=== PATIENT | male | born 1960 | race Caucasian/White ===

== ENCOUNTER 2024-04-17 11:24 | Emergency (ER) | payer OTHER, SELFPAY ==
--- NOTE | ~2024-04-17 | XR_ITS ---
EXAMINATION: XR CHEST CLINICAL INFORMATION: facial droop COMPARISON: None available. TECHNIQUE: Frontal view of the chest was obtained. FINDINGS: The heart is normal in size. The lungs are clear. No pleural effusion. No pneumothorax. No acute osseous abnormality. XR/XR chest 1V IMPRESSION: No acute cardiopulmonary disease. Electronically signed by: Parag Lema DO 04/17/2024 03:39 PM [facility]
--- NOTE | ~2024-04-17 | CT_ITS ---
EXAMINATION: CT HEAD WITHOUT CONTRAST CLINICAL INFORMATION: Left-sided facial droop COMPARISON: None available. TECHNIQUE: Contiguous axial imaging was performed from the skull base to vertex without intravenous administration of contrast. This CT examination was performed using dose optimization techniques as appropriate, variously including the following: *Automated exposure control *Adjustment of mA and/or kV according to patient size (this includes techniques or standardized protocols for targeted exams where dose is matched to indication/reason for exam; i.e. extremities or head) *Use of iterative reconstruction technique DLP: 753 mGy-cm RESULTS: There is no evidence of acute intracranial hemorrhage, acute large vessel infarct, midline shift or mass effect. The lobo-white differentiation is preserved. The ventricles and sulci are within normal limits in size and configuration. There is no evidence of hydrocephalus. There are no extraaxial collections. Osseous structures are intact. Paranasal sinuses and mastoid air cells are well aerated. CT/CT head/brain wo IV con IMPRESSION: Unremarkable non-contrast CT of the brain. Electronically signed by: Alva Flores MD 04/17/2024 11:55 AM EST
--- NOTE | ~2024-04-17 | MR_ITS ---
EXAMINATION: MR BRAIN WITHOUT CONTRAST CLINICAL INFORMATION: Left facial droop. COMPARISON: CT head dated April 17, 2024. TECHNIQUE: MRI of the brain was obtained using routine sequences without contrast. FINDINGS: There is no area of abnormal restricted diffusion to indicate an acute/subacute cerebral or cerebellar infarction. There is no acute intracranial hemorrhage. There is a small focus of decreased signal on the susceptibility weighted sequence within the subcortical white matter of the right frontal lobe representing either an area of calcification or prior microhemorrhage. There is no midline shift or mass effect. There is no extra-axial fluid collection. The ventricles are normal in size. Flow voids at the base of the brain are intact. Midline structures are normal in appearance. The cerebellar tonsils are normally positioned. The orbits are symmetric and within normal limits. There is scattered ethmoid air cell mucosal thickening. There are bilateral mastoid air cell effusions, right larger than left. MR/MR head/brain wo con IMPRESSION: There is no area of abnormal restricted diffusion to indicate an acute/subacute cerebral or cerebellar infarction. There is no intracranial mass lesion. No acute intracranial hemorrhage. Electronically signed by: Parag Lema DO 04/17/2024 02:15 PM EST
--- NOTE | 2024-04-17 11:28 | ECG_ITS ---
Test Reason : FACIAL DROOP Blood Pressure : / mmHG Vent. Rate : 076 BPM Atrial Rate : 071 BPM P-R Int : 000 ms QRS Dur : 088 ms QT Int : 382 ms P-R-T Axes : 000 000 033 degrees QTc Int : 429 ms Normal sinus rhythm with Premature atrial complexes Nonspecific T wave abnormality Abnormal ECG No previous ECGs available Referred By: Fiordaliza Dasilva Electronically Signed By:ARPIT WILLOUGHBY MD
--- NOTE | 2024-04-17 11:28 | ED.NEUROSD ---
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 Engel HPI Narrative: 63-year-old Lebanese speaking male presented today for evaluation of left facial droop and left facial numbness started since yesterday morning roughly over 24 hours, no ear pain, no other weakness, no numbness, no speech problems , no headache, no nausea, vomiting. History of left knee total replacement at [facility] 2 months ago. Related Data Previous Rx's ?Medication ?Instructions ?Recorded carboxymethylcellulose sodium 1 % 1 drp ophthalmic (eye) QID #15 mL 04/17/24 eye drops (Artificial Tears (carboxymethylcellulose)) prednisone 20 mg tablet 20 mg PO BID #10 tabs 04/17/24 valacyclovir 1 gram tablet 1,000 mg PO DAILY #7 tabs 04/17/24 (Valtrex) Allergies Allergy/AdvReac Type Severity Reaction Status Date / Time No Known Allergies Allergy Verified 04/17/24 11:32 Review of Systems Review of Systems: All other systems are reviewed and are negative Constitutional: Reports as per HPI and Reports no additional constitutional complaints Eyes: Reports as per HPI and Reports no additional eye complaints Reports system reviewed and no additional complaints, except as documented Cardiovascular: Reports as per HPI and Reports no additional cardiovascular complaints Respiratory: Reports as per HPI and Reports no additional respiratory complaints Gastrointestinal: Reports as per HPI and Reports no additional gastrointestinal complaints Genitourinary: Reports no additional female genitourinary complaints Musculoskeletal: Reports no additional musculoskeletal complaints Skin/Breast: Reports system reviewed and no additional complaints, except as docu Psychiatric: Reports no additional psychiatric complaints Endocrine: Reports no additional endocrine complaints Hematologic/Lymphatic: Reports no additional hematologic/lymphatic complaints Allergic/Immunologic: Reports no additional allergic/immunologic complaints Reports system reviewed and no additional complaints, except as documented and Reports Abnormal speech present [facility] Social History Social History Advance Directives: No Advance Directives Information Provided: No Do you have a plan to hurt others: No Plan Physical Exam Vital Signs: Vital Signs: Last Vital Signs Temp 98.5 F 04/17/24 13:11 Pulse 75 04/17/24 13:11 Resp 18 04/17/24 13:11 BP 153/84 H 04/17/24 13:11 Pulse Ox 95 04/17/24 13:11 O2 Del Method Room Air 04/17/24 13:11 BMI result Body Mass Index 37.0 Vital signs have been reviewed and appear to be correct. Blood pressure elevated. Heart rate normal. Respiratory rate normal. Temperature normal. Oxygen saturation normal. Appearance: Alert. Oriented X3. No acute distress. Head: Normal external exam. Normocephalic. Atraumatic. No Ivy signs noted. No raccoon eyes noted Eyes: PERRLA. EOMI. Conjunctiva and sclera normal. Eyelids normal. ENT: TM's Normal. Pharynx normal. Uvula midline. Moist mucous membranes. No trismus noted. No drooling noted. No muffled voice noted. Neck: Normal inspection. Neck supple. FROM. No adenopathy. Thyroid Normal. No meningeal signs. No neck mass noted. CVS: Normal heart rate and rhythm. Heart sound normal. No murmurs noted. Pulses normal throughout. Respiratory: No respiratory distress. Painless inspiration. Breath sounds normal. No wheezes/rales/rhonchi noted. Chest nontender. No accessory muscle usage noted or decreased air movement noted. Abdomen: Soft and nontender. Bowel sounds normal in all 4 quadrants. No distention noted. No organomegaly noted. No visible injury noted. Back: No CVA tenderness. Full range of motion noted. Skin: Skin warm and dry. Normal skin color. Normal skin turgor. No rashes/lesions/lacerations noted. Extremities: No lower extremity edema. Extremities exhibit normal range of motion. Extremities nontender. Neuro: Oriented X 3. Cranial nerve exam: II-XII Are intact, left facial droop with decreased light touch sensation, affecting both forehead and low face. No motor deficit. No sensory deficit. Reflexes normal. Course Course Course Narrative: This is a Rapid Medical Exam performed in triage by Fiordaliza Dasilva PA-C. Full HPI, ROS and PE to be performed by primary ED provider. 63 yo M presenting to the ED c/o left sided facial droop since yesterday morning, unclear what time. Denies history of CVA or anticoagulation use. Denies other complaints at present PE: left-sided facial droop appreciated. Strength intact otherwise throughout Plan: EKG, labs, UA, Head CT/ CTA head and neck for stroke ordered. Patient brought back to ED room immediately Reevaluation(s) Reevaluation #1: 63-year-old male came in for 1 day of left facial droop, otherwise normal neuro exam, head CT/ MRI is unremarkable for acute pathology. Piña's palsy is favorable diagnosis will start Valtrex/ prednisone/ artificial tears Since symptoms started less than 72 hours ago. and follow-up with PCP. Time: 14:32 Medical Decision Making Differential Diagnosis Differential Diagnoses: The differential diagnosis associated with the presentation includes ( Ischemic stroke, hemorrhagic stroke, Piña's palsy, electrolyte derangement, severe anemia.) Admission/Observation Consideration of admission/observation: Escalation of care including admission/observation considered Lab Data MDM Lab Attestation statement: I reviewed the patient's lab results. 04/17/24 11:39 04/17/24 11:39 Labs: Lab Results 04/17/24 04/17/24 04/17/24 Range/Units 11:39 11:41 12:09 WBC 7.3 (4.8-10.8) X10*3/uL RBC 5.42 (4.60-5.80) X10*6/uL Hgb 15.1 (14.0-18.0) g/dl Hct 45.2 (42.0-52.0) % MCV 83.4 (80.0-98.0) fL MCH 27.9 (27.0-33.0) pg MCHC 33.4 (31.0-36.0) g/dl RDW 12.5 (11.0-16.0) % Plt Count 261 (160-400) X10*3/uL MPV 9.5 (9.4-12.4) fL Immature Gran % (Auto) 0.4 (0.0-0.4) % Neut % (Auto) 59.7 (45-73) % Lymph % (Auto) 26.0 (20-40) % [place] % (Auto) 11.4 H (2-11) % Eos % (Auto) 1.8 (0-4) % Baso % (Auto) 0.7 (0-2) % Lymph # (Auto) 1.9 (1.2-4.9) X10*3/uL [place] # (Auto) 0.8 (0.1-1.2) X10*3/uL Eos # (Auto) 0.1 (0.0-0.4) X10*3/uL Baso # (Auto) 0.1 (0.0-0.2) X10*3/uL Abs Immat Gran (auto) 0.03 (0.00-0.03) X10*3/uL Absolute Neuts (auto) 4.4 (2.0-8.3) x10*3/uL Absolute Nucleated RBC 0.000 (0.0-0.012) X10*3/uL Nucleated RBC % (auto) 0.0 (0.0-0.2) /100WBC PT 11.1 (10.9-12.4) SEC INR 1.0 (0.9-1.1) Sodium 143 (135-145) mmol/L Potassium 4.1 (3.3-5.1) mmol/L Chloride 107 (96-108) mmol/L Carbon Dioxide 28 (22-29) mmol/L Anion Gap 12 (12-20) BUN 19 H (9-16) mg/dL Creatinine 0.81 (0.5-1.4) mg/dL Estim Creat Clear Calc 123.1 Estimated GFR > 60 POC Glucose 108 (60-115) mg/dL Random Glucose 103 (60-115) mg/dL Calcium 9.3 (8.4-10.2) mg/dL Magnesium 1.9 (1.6-2.6) mg/dL Total Bilirubin 0.2 (0.0-1.0) mg/dL Direct Bilirubin < 0.2 (0.0-0.5) mg/dL AST 29 (5-37) U/L ALT 47 H (0-40) U/L Alkaline Phosphatase 87 (39-117) U/L Troponin I High Sens < 2.7 (<3.5-35.0) ng/L Total Protein 7.1 (6.5-8.0) g/dL Albumin 4.4 (3.5-5.0) g/dL Urine Color Yellow Urine Appearance Clear Urine pH 5.5 (5.0-9.0) Ur Specific [facility] 1.020 (1.005-1.025) Urine Protein 30 (1+) H (Neg-Trace) mg/dL Urine Glucose (UA) Negative (Negative) mg/dL Urine Ketones Negative (Negative) mg/dL Urine Blood Negative (Negative) Urine Nitrite Negative (Negative) Ur Leukocyte Esterase Negative (Negative) Urine RBC 0-2 (0-2) /HPF Urine WBC 0-5 (0-5) /HPF Ur Squamous Epith Cells 0-2 (0-2) /HPF Urine Bacteria None Seen (None Seen) Hyaline Casts 0-2 (0-2) /LPF Independent Interpretation I performed an independent interpretation of an: CT Scan ( Head CT/MRI:There is no area of abnormal restricted diffusion to indicate an acute/subacute cerebral or cerebellar infarction. There is no intracranial mass lesion. No acute intracranial hemorrhage. ) Radiology Impression Discussion of test interpretation with radiology: I have reviewed the radiologist's reading. NIH Stroke Scale Time: 11:59 Level of Consciousness: Alert Level of Consciousness Questions: Answers both questions correctly Level of Consciousness Commands: Performs both tasks correctly Best Gaze: Normal Visual: No visual loss Facial Palsy: Minor paralyis Motor Arm (Right): No drift Motor Arm (Left): No drift Motor Leg (Right): No drift Motor Leg (Left): No drift Limb Ataxia: Absent Sensory: Normal Best Language: No aphasia Dysarthia: Normal Extinction and Inattention: No abnormality Score: 1 Discharge Plan Discharge Clinical Impression: Piña's palsy Patient Disposition: Home, Self-Care Instructions: Piña Palsy (ED) Prescriptions: New valacyclovir [Valtrex] 1 gram tablet 1,000 mg PO DAILY Qty: 7 0RF prednisone 20 mg tablet 20 mg PO BID Qty: 10 0RF Artificial Tears (cmc) 1 % drops 1 drp ophthalmic (eye) QID Qty: 15 0RF Referrals: Bessy Ceron MD [Primary Care Provider] - Print Language: Lebanese
[2024-04-17 11:29] VITALS: BP 112/82; PULSE 79; RESP 18; TEMP 36.8; O2SAT 98; BMI 37.0
[2024-04-17 11:43] LABS: MANUAL DIFF FLAG NO
[2024-04-17 11:45] LABS: Basophils Absolute Auto 0.1 X10*3/uL (0.0-0.2); Basophils Percent Auto 0.7 % (0-2); Eosinophils Absolute Auto 0.1 X10*3/uL (0.0-0.4); Eosinophils Percent Auto 1.8 % (0-4); Hematocrit 45.2 % (42.0-52.0); Hemoglobin 15.1 g/dl (14.0-18.0); Imm Gran Abs Auto 0.03 X10*3/uL (0.00-0.03); Imm Gran Pct Auto 0.4 % (0.0-0.4); Lymphocytes Absolute Auto 1.9 X10*3/uL (1.2-4.9); Mean Corpuscular HGB Conc 33.4 g/dl (31.0-36.0); Mean Corpuscular Hemoglobin 27.9 pg (27.0-33.0); Mean Corpuscular Volume 83.4 fL (80.0-98.0); Mean Platelet Volume 9.5 fL (9.4-12.4); Monocytes Absolute Auto 0.8 X10*3/uL (0.1-1.2); Monocytes Percent Auto 11.4 % (2-11); Neutrophils Absolute Auto 4.4 x10*3/uL (2.0-8.3); Neutrophils Percent Auto 59.7 % (45-73); Platelet Count 261 X10*3/uL (160-400); Red Blood Count 5.42 X10*6/uL (4.60-5.80); Red Cell Distribution Width 12.5 % (11.0-16.0); White Blood Count 7.3 X10*3/uL (4.8-10.8)
[2024-04-17 11:47] LABS: Glucose, Whole Blood 108 mg/dL (60-115)
[2024-04-17 11:51] LABS: Prothrombin Time 11.1 SEC (10.9-12.4)
[2024-04-17 12:01] LABS: Alanine Aminotransferase 47 U/L (0-40); Albumin Level 4.4 g/dL (3.5-5.0); Alkaline Phosphatase 87 U/L (39-117); Anion Gap 12 (12-20); Aspartate Amino Transferase 29 U/L (5-37); Bilirubin Direct < 0.2 mg/dL (0.0-0.5); Bilirubin Total 0.2 mg/dL (0.0-1.0); Blood Urea Nitrogen 19 mg/dL (9-16); Calcium 9.3 mg/dL (8.4-10.2); Carbon Dioxide 28 mmol/L (22-29); Chloride 107 mmol/L (96-108); Creatinine Clr Calc Pharmacy 123.1; Estimated Glomerular Filt Rate > 60; Glucose Random 103 mg/dL (60-115); Magnesium 1.9 mg/dL (1.6-2.6); Potassium 4.1 mmol/L (3.3-5.1); Sodium 143 mmol/L (135-145); Total Protein 7.1 g/dL (6.5-8.0)
[2024-04-17 12:10] LABS: Troponin-I High Sensitivity < 2.7 ng/L (<3.5-35.0)
[2024-04-17 12:18] LABS: Appearance Urine Clear; Color Urine Yellow; Glucose Urine UA Negative (Negative); Leukocyte Esterase Urine Negative (Negative); Nitrite Urine Negative (Negative); PH 5.5 (5.0-9.0); UMIC TRIGGER UACC YES; Urine Blood Negative (Negative); Urine Ketones Negative (Negative); Urine Protein 30 (1+) mg/dL (Neg-Trace)
[2024-04-17 13:00] LABS: Bacteria Urine None Seen (None Seen); Hyaline Casts Urine 0-2 /LPF (0-2); RBC Urine 0-2 /HPF (0-2); Squamous Epithelial Cell Urine 0-2 /HPF (0-2); WBC Urine 0-5 /HPF (0-5)
[2024-04-17 13:11] VITALS: BP 153/84; PULSE 75; RESP 18; TEMP 36.9; O2SAT 95
[2024-04-17 15:52] VITALS: BP 162/93; PULSE 72; RESP 20; TEMP 36.8; O2SAT 96
[2024-04-18 10:42] LABS: Prothrombin Time Whole Bld POC 11.8 sec (11.1-13.5)
[2024-04-19 17:19] LABS: Lyme Abs Screen <0.90 index
== END 2024-04-17 15:52 | disposition home or self-care (01) ==
PROVIDERS: Physician Assistant; Emergency Provider Emergency Medicine; PCP Internal Medicine
DX: G51.0 Bell's palsy (principal); R29.701 NIHSS score 1
CPT/HCPCS: 36415; 70450; 70551; 71045; 80048; 80076; 81001; 82947; 83735; 84484; 85025; 85610; 86617; 86618; 93005; 99285

== ENCOUNTER → 2024-04-17 11:28 | Outpatient (BNV) | payer OTHER, SELFPAY | PROVIDERS: Emergency Provider Emergency Medicine; PCP Internal Medicine; Visit Provider Internal Medicine Cardiovascular Disease | DX: R94.31 Abnormal electrocardiogram [ECG] [EKG] (principal) | CPT/HCPCS: 93010 ==